=== PATIENT | male | born 1980 | race Caucasian/White ===

== ENCOUNTER 2018-09-13 12:15 | Inpatient (IN) ==
[2018-09-13 12:39] LABS: BASO# 0.03 X1000 (0.0-0.2); BASO% 0.3 % (0.0-0.8); EOS# 0.06 X1000 (0.0-0.7); EOS% 0.6 % (0.0-10.0); HEMATOCRIT 47.1 % (42.0-52.0); HEMOGLOBIN 16.2 g/dL (14.0-18.0); IMM GRAN# 0.04 X1000 (0.0-0.04); IMM GRAN% 0.4 % (0.0-0.5); LYMPH# 1.23 X1000 (1.2-3.4); LYMPH% 12.9 % (20.5-51.1); MCHC 34.4 g/dL (33-37); MCV 84.4 FL (81-99); MONO# 0.92 X1000 (0.11-0.59); MONO% 9.7 % (1.7-9.3); MPV 9.1 FL (7.4-10.4); NEUT# 7.24 X1000 (1.4-6.5); NEUT% 76.1 % (42.2-75.2); PLT 318 X1000 (130-400); RBC 5.58 XMIL (4.7-6.1); WBC 9.52 X1000 (4.8-10.8)
[2018-09-13] MEDS ORDERED: NS 1,000 ML IV ONE (12:43)
[2018-09-13] MEDS ORDERED: SODIUM CHLORIDE 0.9% INJ ONE (12:43)
[2018-09-13] MEDS ORDERED: PEPCID IV ONE (12:43)
[2018-09-13] MEDS ORDERED: G.I. COCKTAIL PO ONE (12:43)
[2018-09-13] MEDS ORDERED: DUONEB (A & A) INH ONE (12:44)
[2018-09-13] MEDS ORDERED: ZOFRAN IV ONE (12:45)
[2018-09-13 12:54] LABS: INR 0.84; PROTIME 11.9 Seconds (11.0-16.0)
[2018-09-13 12:59] LABS: AGAP 12; ALKALINE PHOSPHATASE 141 U/L (32-122); BUN 13 mg/dL (8-22); CALCIUM 9.8 mg/dL (8.8-10.2); CHLORIDE 95 mmol/L (98-107); COSMO 287; CREATININE 0.8 mg/dL (0.7-1.2); ESTIMATED GFR > 60; GLUCOSE 138 mg/dL (70-104); GOT 24 U/L (10-34); GPT 24 U/L (10-44); POTASSIUM 3.7 mmol/L (3.5-5.1); SODIUM 143 mmol/L (136-145); TCO2 37 mmol/L (25-35); TOTAL PROTEIN 8.5 g/dL (6.3-8.3)
--- NOTE | 2018-09-13 13:28 | Diag Imaging Result Doc PS360 ---
EXAM: CHEST-PORTABLE HISTORY: COUGH/COPD TECHNIQUE: Portable chest single view COMPARISON: 05/30/2013 FINDINGS: The lungs are well expanded. The heart is not enlarged. The vessels are not distended. There are no infiltrates. No effusion identified. IMPRESSION: Negative exam. Electronically signed by Chano Gutiérrez 09/13/2018 1:26 PM
[2018-09-13 13:32] LABS: BILIRUBIN URINE NEGATIVE (NEGATIVE); BLOOD URINE NEGATIVE (NEGATIVE); CLARITY CLEAR (CLEAR); COLOR YELLOW; GLUCOSE URINE NEGATIVE (NEGATIVE); KETONE URINE 1+(Small) mg/dL (NEGATIVE); LEUKOCYTES URINE NEGATIVE (NEGATIVE); NITRITE URINE NEGATIVE (NEGATIVE); PROTEIN URINE 1+(30 mg/dL) mg/dL (NEGATIVE); UROBILINOGEN URINE NORMAL
[2018-09-13 13:43] LABS: UR AMPHETAMINES QUAL NONE DETECTED (NONE DETECT); UR BARBITUATES QUAL NONE DETECTED (NONE DETECT); UR BENZODIAZEPIN QUAL NONE DETECTED (NONE DETECT); UR CANNABINOIDS QUAL PRESUMPTIVE POSITIVE (NONE DETECT); UR COCAINE QUAL NONE DETECTED (NONE DETECT); UR METHADONE QUAL NONE DETECTED (NONE DETECT); UR METHAMPHETAMINE QUAL PRESUMPTIVE POSITIVE (NONE DETECT); UR OPIATES QUAL NONE DETECTED (NONE DETECT); UR OXYCODONE QUAL NONE DETECTED (NONE DETECT); UR PCP QUAL NONE DETECTED (NONE DETECT); UR PROPOXYPHENE QUAL NONE DETECTED (NONE DETECT); UR TCA QUAL NONE DETECTED (NONE DETECT)
[2018-09-13 13:50] LABS: URINE EPITHELIAL CELLS <10 /HPF (<10); URINE SOURCE CLEAN CATCH
--- NOTE | 2018-09-13 14:14 | Diag Imaging Result Doc PS360 ---
EXAM: CT ABD/PELVIS W/IV CONT ONLY HISTORY: PAIN TECHNIQUE: CT abdomen and pelvis with intravenous contrast COMPARISON: 01/31/2015 FINDINGS: No calcified gallstones or adjacent inflammation. There is mild fatty infiltration of the liver. There is thickening to the wall of the antrum of the stomach. Normal spleen, pancreas, adrenal glands, and kidneys. No hydronephrosis. Normal aorta. No bowel obstruction. No inflammation about the cecum. The appendix is not definitely identified. Stool is found throughout the colon. The urinary bladder is only mildly distended. The prostate is not enlarged. IMPRESSION: 1.Thickening to the wall of the antrum which may be secondary to gastritis or ulcer. 2.Mildly fatty liver 3.Mild constipation This exam was performed using automated exposure control, adjustment of mA or kV according to patient size, and/or use of iterative reconstruction technique. Electronically signed by Chano Gutiérrez 09/13/2018 2:12 PM
--- NOTE | 2018-09-13 15:42 | PROVIDER DOCUMENTATION ---
This chart was entered by Sonja Marmolejo Scribe, acting as scribe for Mehrdad Nogueira DO. HPI-Abdominal Pain/GI Problem - General Chief Complaint: GI Bleed Stated Complaint: VOMITING / BLOOD Time Seen by Provider: 09/13/18 12:24 Source: patient Allergies/Adverse Reactions: Patient Allergies Allergy/AdvReac Type Severity Reaction Status Date / Time No Known Allergies Allergy Verified 01/17/18 10:01 Home Medications: Home Medication List Medication Instructions Recorded Confirmed Last Taken Type Pantoprazole [Protonix] 40 mg PO DAILY@0700 #30 tab 01/17/18 Unknown Rx Promethazine [Phenergan] 25 mg PO Q6H PRN PRN #16 tab 01/17/18 Unknown Rx Sucralfate [Carafate] 1 gm PO Q6H 14 Days oral.susp 01/17/18 Unknown Rx - History of Present Illness-ABD Nature of Presenting Problems: 38 yom presents to ED cc nausea, vomiting with blood and abdominal pain for 2 days but got worse last night. Pt states he has been taking lots of Goody Powders recently. Pt has hx of peptic ulcer disease. Abdominal Pain Onset Location: reports: generalized abdomen Severity in ED: reports: moderate Onset/Duration: reports: 2 days ago Timing: reports: still present, changing over time Activities at Onset: reports: none Exposure to sick contacts?: No Modifying Factors: improves with: nothing Associated Symptoms: reports: nausea, vomiting Last BM: this morning Dark Stools Present?: reports: none noticed Rectal Bleeding: reports: none Rectal Pain: reports: none Emesis Description: reports: coffee grounds Bruising or Bleeding Gums?: No Similar Symptoms Previously?: No Recently seen or treated by another doctor?: No Review of Systems - Adult - REVIEW OF SYSTEMS - ADULT Constitutional: reports: see HPI. denies: chills, fever, fatique Eyes: reports: no symptoms reported Ears, Nose, Mouth & Throat: reports: no symptoms reported Cardiovascular: reports: no symptoms reported Respiratory: reports: no symptoms reported Gastrointestinal: reports: see HPI, abdominal pain, nausea, vomiting Genitourinary: reports: no symptoms reported Musculoskeletal: reports: no symptoms reported Integumentary: reports: no symptoms reported Neurological: reports: no symptoms reported Psychiatric: reports: no symptoms reported Endocrine: reports: no symptoms reported Hematologic/Lymphatic: reports: no symptoms reported Allergic/Immunologic: reports: no symptoms reported All Other Systems: Reviewed and Negative Past History - Adult - PAST MEDICAL HISTORY-ADULT Review of Records: reports: Nursing Assessment Review, Medications Reviewed, Social history reviewed & non-contributory. Major Childhood Illnesses: reports: denies history Cardiovascular: reports: denies history Respiratory: reports: denies history Gastrointestinal: reports: GI bleed Obstetrical/Gynecological: reports: denies history Genitourinary: reports: denies history Musculoskeletal: reports: denies history Neurological: reports: denies history Endocrine/Immune: reports: denies history Other Conditions: reports: MRSA - PRIOR SURGERIES/PROCEDURES Surgical/Procedure History: reports: tonsillectomy - PRIOR HOSPITALIZATIONS Prior Hospitalizations: reports: none - IMMUNIZATION STATUS Childhood Immunizations: See Nurse Assessment Flu Vaccine: See Nurse Assessment - FAMILY HISTORY Family History: reviewed, not pertinent - SOCIAL HISTORY Smoking: denies Physical Exam-General - PHYSICAL EXAM-ADULT Initial Vital Signs Reviewed: Yes - CONSTITUTIONAL General Appearance: appears well, alert. negative: anxious, combative - EYES Eyes: PERRL/EOMI, pink conjunctivae. negative: photophobia - HEAD, EARS, NOSE, MOUTH & THROAT HENMT: moist mucous membranes, dental decay (scattered caries), TM obscurred by cerumen (right). negative: angioedema - RESPIRATORY Respiratory: chest non-tender, no accessory muscle use, wheezing (inspiratory and expiratory, scattered). negative: crackles, rales, rhonchi - CARDIOVASCULAR Cardiovascular: normal peripheral pulses, regular rate, rhythm, no edema, no gallop, no JVD, no murmur. negative: bradycardia, tachycardia - GASTROINTESTINAL (ABDOMEN) Abdominal Exam: soft, rebound, tenderness (RUQ, RLQ and over colon), other (bowels are hypoactive in all 4 quadrants). negative: obturator sign - LYMPHATIC Lymphatic: no adenopathy. negative: striations - MUSCULOSKELETAL Back Exam: normal inspection, CVA tenderness (left). negative: swelling Extremity: normal range of motion, normal inspection. negative: deformity - SKIN Integumentary: normal color, normal turgor, warm/dry. 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 negative: facial droop, focal weakness - PSYCHIATRIC Psych/Mental Status: normal mood/affect, normal thought content, normal thought process, oriented x 3. negative: anxious Progress - PLAN OF CARE/RESULTS Progress/Plan/Lab Results: Vital Signs - 8 hr 09/13/18 12:25 Temperature 98 F Pulse Rate 71 Respiratory Rate 18 Blood Pressure 142/82 O2 Sat by Pulse Oximetry 99 Laboratory Results - last 24 hr 09/13/18 09/13/18 09/13/18 12:30 12:30 12:30 WBC 9.52 RBC 5.58 Hgb 16.2 Hct 47.1 MCV 84.4 MCH 29.0 MCHC 34.4 RDW Std Deviation 14.0 Plt Count 318 MPV 9.1 Immature Gran % (Auto) 0.4 Neut % (Auto) 76.1 H Lymph % (Auto) 12.9 L [place] % (Auto) 9.7 H Eos % (Auto) 0.6 Baso % (Auto) 0.3 Immature Gran # (Auto) 0.04 Neut # (Auto) 7.24 H Lymph # (Auto) 1.23 [place] # (Auto) 0.92 H Eos # (Auto) 0.06 Baso # (Auto) 0.03 PT 11.9 INR 0.84 PTT (Actin FS) 26.0 Sodium 143 Potassium 3.7 Chloride 95 L Carbon Dioxide 37 H Anion Gap 12 BUN 13 Creatinine 0.8 Estimated GFR/1.73 m2 > 60 BUN/Creatinine Ratio 16 Glucose 138 H Calculated Osmolality 287 Calcium 9.8 Total Bilirubin 0.30 AST 24 ALT 24 Alkaline Phosphatase 141 H Total Protein 8.5 H Albumin 5.0 Globulin 4.0 Albumin/Globulin Ratio 1.0 Orders Category Date Time Status IV Insertion ORDERED Care 09/13/18 12:42 Completed CHEST-PORTABLE [RAD] Stat Exams 09/13/18 12:[address] ABD/PELVIS W/IV CONT ONLY [CT] Stat Exams 09/13/18 12:40 Ordered CBC WITH ELECTRONIC DIFF [HEME] Stat Lab 09/13/18 12:30 Completed CBC WITH ELECTRONIC DIFF [HEME] Stat Lab 09/13/18 12:45 Ordered COMPREHENSIVE METABOLIC PANEL [CHEM] Stat Lab 09/13/18 12:30 Completed PROTIME WITH INR [COAG] Stat Lab 09/13/18 12:30 Completed PTT [COAG] Stat Lab 09/13/18 12:30 Completed TYPE & SCREEN [BBK] Stat Lab 09/13/18 12:30 Received UA NIMS W/REFLEX CULT PL [URINALYSIS] Stat Lab 09/13/18 12:52 Ordered URINE DRUG SCREEN PL Stat Lab 09/13/18 12:52 Ordered 0.9% Sodium Chloride Inj [Ns] 1,000 ml Med 09/13/18 12:43 Active IV 999 mls/hr Albuterol 2.5MG/Ipratrop 0.5MG [Duoneb (A & A)] Med 09/13/18 12:44 Discontinued 3 ml INH NOW ONE Famotidine [Pepcid] Med 09/13/18 12:43 Discontinued 20 mg IV NOW ONE Lido/[place] Alk/Al&mg Hydrox [G.i. Cocktail] Med 09/13/18 12:43 Discontinued 30 ml PO NOW ONE Ondansetron [Zofran] Med 09/13/18 12:45 Discontinued 4 mg IV NOW ONE Sodium Chloride 0.9% Med 09/13/18 12:43 Discontinued 5 - 10 ml INJ NOW ONE Aerosol Treatments Routine Oth 09/13/18 12:44 Active Aerosol Treatments Stat Oth 09/13/18 12:44 Active GI Bleed (possible) Stat Oth 09/13/18 12:31 Ordered Result Diagrams: 09/13/18 12:30 09/13/18 12:30 - REASSESSMENT Reassessment #1 Status: improving (DISCUSSED LABS/CT-SCAN PATIENT IS WILLING TO STAY FOR OBSERVATIONS) - XRAY 1 XRAY: Bilateral XRAY Study: Chest Impression: See EMR Report (IMPRESSION: Negative exam. Electronically signed by Chano Gutiérrez 09/13/2018 1:26 PM) - CT/MRI 1 CT Study: Abdomen, Pelvis Impression: See EMR Report (IMPRESSION: 1.Thickening to the wall of the antrum which may be secondary to gastritis or ulcer. 2.Mildly fatty liver 3.Mild constipation This exam was performed using automated exposure control, adjustment of mA or kV according to patient size, and/or use of iterative reconstruction technique. Electronically signed by Chano Gutiérrez 09/13/2018 2:12 PM) - CONSULTS/PCP/HOSPITALIST Notification #1 *Consult/PCP/Hospitalist*: Dr. Pratt Time Discussed: 15:32 Consult Disposition: Admit (Dr. Pratt accepted pt) Departure - Departure Date of Disposition Decision: 09/13/18 Time of Disposition Decision: 15:41 DIAGNOSIS: Upper gastrointestinal hemorrhage due to gastritis Disposition: ADMITTED INPATIENT 09 Certified Medical Emergency: Emergent Condition: Stable Referrals and Follow-Ups: None,PCP [Primary Care Provider] - - Critical Care Note This patient required my direct & personal management of CC.: No Attestation - Physician/ JENNIFER Attestation Patient care was provided by Advanced Practice Provider:: No The physician spent face to face time with patient:: Yes Advanced Practice Provider documentation review:: Supervising physician onsite and consulted in the evaluation and care of this patient. The physician did have a face to face encounter with the patient. This chart was documented by the indicated scribe, (Sonja Marmolejo Scribe) and accurately reflects the services I performed and decisions made by me, Mehrdad Nogueira DO, as attested by the provider's signature.
[2018-09-13] MEDS: DUONEB (A & A) INH SCH ×2 (16:36→23:46)
[2018-09-13 16:54] LABS: OCCULT BLOOD 1 NEGATIVE (NEGATIVE)
[2018-09-13] MEDS ORDERED: PROTONIX 80 MG in NS 80 ML IV SCH (17:00)
--- NOTE | 2018-09-13 17:42 | HISTORY AND PHYSICAL ---
PRIMARY CARE PHYSICIAN: None. CHIEF COMPLAINT: Abdominal pain and hematemesis. HISTORY OF PRESENT ILLNESS: Mr. Klein is a 38-year-old male with a history of gastritis, gastric ulcer and GI bleed in the past, and nicotine and methamphetamine dependence, who presented to the ER with 24 hours of abdominal pain followed by hematemesis that began at midnight up until this morning. He was having generalized nausea all day yesterday. This morning at about 1 o'clock he woke up, went outside, and started having multiple bouts of hematemesis,which he describes as coffee-ground emesis. He takes around 2-4 Good powders a day and has done so for the past 4-5 months for headaches. He was actually seen around 4 years ago for the same and was scoped by Dr. Flannery, at which time he was noted to have severe gastritis, evidence of antral ulcer, and duodenitis. Today his labs show hemoconcentration. A CT of the abdomen and pelvis reveals antral thickening consistent with ulcer or gastritis. He is hemodynamically stable, and he will be admitted for further treatment and evaluation. PAST MEDICAL HISTORY: 1. Previous GI bleed in the past, status post endoscopy revealing antral ulcer and severe gastritis and duodenitis. 2. Methamphetamine dependence. 3. Nicotine dependence. PAST SURGICAL HISTORY: He has had upper endoscopy in the past, tonsillectomy, and Eustachian tubes. SOCIAL HISTORY: He smokes half a pack to a pack a day. He said he smokes methamphetamine twice a day. Smokes occasional marijuana. Denies alcohol or other illicit drug use. 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 FAMILY HISTORY: Father from a stroke. Mother possibly has lung cancer. REVIEW OF SYSTEMS: A 14-point review of systems was obtained and found to be negative with the exception of the HPI. HOME MEDICATIONS: No prescription medicines. He does take 2-4 Goody powders a day. ALLERGIES: No known drug allergies. PHYSICAL EXAMINATION: VITAL SIGNS: Blood pressure is 132/74, heart rate 105, respiratory rate 18, O2 saturation 97% on room air, temperature 98.0. GENERAL: [id number] 38-year-old male lying in the hospital bed in no acute distress. NEUROLOGIC: Awake, alert and oriented. Follows commands. No focal deficits. HEENT: Head is atraumatic and normocephalic. Pupils are equal, round and reactive to light. Oral mucosa is dry. NECK: Trachea is midline. There is no JVD. CHEST: Diminished at the bases but clear to auscultation. CV: Slightly tachycardic but regular. S1 and S2 is noted. There are no murmurs. GI: Left upper and left lower quadrant tenderness to palpation. Abdomen is soft. Bowel sounds are hypoactive. EXTREMITIES: Without edema,clubbing or cyanosis. Pulses 1+ bilaterally. DIAGNOSTIC DATA: Abdomen and pelvis CT shows thickening to the wall of the antrum which may be secondary to gastritis or ulcer. Mild fatty liver, mild constipation. Chest x-ray is negative. WBCs 9.52, hemoglobin 16.2, hematocrit 47.1, platelet count 318, INR 0.84. Sodium 143, potassium 3.7, chloride 95. CO2 is 37, anion gap 12, BUN 13, creatinine 0.8, glucose 138. AST 24, ALT 24, alkaline phosphatase 141, protein 8.5. UA shows ketones and protein. Tox screen is positive for methamphetamines and cannabinoids. ASSESSMENT/PLAN: 1. Acute upper gastrointestinal bleed, likely a recurrence of his gastric ulcer exacerbated by heavy Goody powder use as well as excessive caffeine/energy drinks. We have spoken with Dr. Flannery with Gastroenterology and will transfer him to the hospitalist service at [facility]. He is on a Protonix drip, Carafate every 6 hours, n.p.o. except ice chips, and IV fluids. He is currently hemoconcentrated. We are checking his hemoglobin and hematocrit every 6 hours. 2. Polysubstance and nicotine dependence. We have advised the patient against the use of cigarette products, marijuana, and amphetamines. Will continue cessation education and write a nicotine patch. 3. Deep venous thrombosis prophylaxis with sequential compression devices. 4. Further recommendations to follow. Dictated by MARGO Hager for Juan Harley MD cc: MARGO Hager MD [facility]
[2018-09-13 18:14] LABS: HEMATOCRIT 41.8 % (42.0-52.0); HEMOGLOBIN 14.4 g/dL (14.0-18.0)
[2018-09-13] MEDS ORDERED: NS 1,000 ML ONE (18:16)
[2018-09-13] MEDS: NS 1,000 ML IV SCH (18:29)
[2018-09-13] MEDS ORDERED: PROTONIX IV SCH (21:00)
[2018-09-13] MEDS ORDERED: PEPCID PO SCH (21:00)
--- NOTE | 2018-09-13 23:36 | HISTORY AND PHYSICAL ---
ADDENDUM: CHIEF COMPLAINT: Abdominal pain. HISTORY OF PRESENT ILLNESS: The patient presented to the hospital, stating he had some coffee- ground-appearing emesis this morning. He notes that it was similar to the previous time that he had an ulcer 5 years ago that required intervention and a blood transfusion. He has started taking Goody's powder as well as energy drinks again. PLAN: Currently his hemoglobin and hematocrit are stable. We will admit him to the hospital but transfer him to [facility] [place] for GI intervention if needed. We will place him on a Protonix drip. Keep him NPO currently. Discussed with the patient the importance of not taking Goody's powders or any anti-inflammatories as well as avoiding energy drinks, etc. Please see full note. cc: Juan Harley MD
[2018-09-13] MEDS: CARAFATE PO SCH ×2 (23:50→23:51)
[2018-09-13] MEDS: PROTONIX 80 MG in NS 80 ML IV SCH (23:51)
[2018-09-13] MEDS: NICODERM PATCH TD SCH (23:52)
[2018-09-14 00:33] LABS: HEMATOCRIT 41.6 % (42.0-52.0); HEMOGLOBIN 13.9 g/dL (14.0-18.0)
[2018-09-14] MEDS: NS 1,000 ML IV SCH ×3 (02:16→18:58)
[2018-09-14] MEDS: CARAFATE PO SCH ×4 (03:03→18:56)
[2018-09-14] MEDS: DUONEB (A & A) INH SCH ×4 (05:32→21:06)
[2018-09-14 07:15] LABS: HEMATOCRIT 42.2 % (42.0-52.0); HEMOGLOBIN 14.1 g/dL (14.0-18.0); MCH 29.3 PG (27-31); MCHC 33.4 g/dL (33-37); MCV 87.7 FL (81-99); MPV 9.5 FL (7.4-10.4); RBC 4.81 XMIL (4.7-6.1); RDW 14.3 % (11.5-14.5); WBC 9.3 X1000 (4.8-10.8)
[2018-09-14 07:48] LABS: AGAP 9; BUN 11 mg/dL (8-22); CALCIUM 8.6 mg/dL (8.8-10.2); CHLORIDE 105 mmol/L (98-107); COSMO 281; CREATININE 0.8 mg/dL (0.7-1.2); ESTIMATED GFR > 60; GLUCOSE 102 mg/dL (70-104); POTASSIUM 3.7 mmol/L (3.5-5.1); SODIUM 141 mmol/L (136-145); TCO2 27 mmol/L (25-35)
[2018-09-14] MEDS ORDERED: PROTONIX IV SCH (09:00)
[2018-09-14] MEDS ORDERED: SODIUM CHLORIDE 0.9% INJ PRN (09:00)
[2018-09-14] MEDS: PROTONIX 80 MG in NS 80 ML IV SCH ×2 (09:43→20:10)
[2018-09-14] MEDS: NICODERM PATCH TD SCH ×2 (09:44→10:07)
--- NOTE | 2018-09-14 10:36 | PROGRESS NOTE ---
DATE: 09/14/2018 SUBJECTIVE: Mr. Klein was seen early this morning. He was actually sleeping but he woke up. He was in the bed with a female partner. Mr. Klein referred to be feeling okay. Still has some intermittent abdominal discomfort. He also give a history of headache, which is intermittent and that is the reason why he has been binging every now and then on Goody Powders. Mr. Klein 4 was admitted to [facility] yesterday because of GI bleed and was transferred over here for higher level of care. OBJECTIVE: Vital signs: Blood pressure is 135/86, pulse is 69, respirations 16, temperature 97.5 degrees. General: Mr. Klein is a 38-year-old well-nourished gentleman. He was in bed, no distress. HEENT: Mucosa is pink and moist. Anicteric. Acyanotic. Neck: Supple. Chest: Clear to auscultation. No crepitations. No rhonchi. Cardiovascular: Regular rate and rhythm. There is no murmurs, no rubs, no gallops. GI: Abdomen is soft. There is minimum tenderness in the epigastrium. No rebound, guarding. Bowel sounds are present. There is no hepatosplenomegaly. Extremities: No pedal edema. Distal pulses are present. 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 There is no focal neurological deficit. LABORATORY DATA: WBC is 9.30, hemoglobin is 14.1, platelet count of 242,000. Chemistry is also reviewed is completely normal. IMAGING STUDIES: A CT scan of the abdomen and pelvis with contrast yesterday showed thickening to the wall of the antrum, which may be secondary to gastritis or ulcer. There is mildly fatty liver. There is also mild constipation. Review of previous data, the patient had an EGD on February 02, [address] Flannery which revealed severe reflux esophagitis in the distal esophagus with contact oozing. There was also evidence of erosive gastritis in the body and antrum. There was evidence of an ulcer in the gastric antrum measuring about 0.5 to 0.8, duodenitis in the duodenal bulb. ASSESSMENT: 1. Acute upper GI bleed (non variceal). This is probably related to recurrence of his gastric ulcer/severe esophagitis. The patient continues to be using Goody Powder. He has been cautioned not to. He is currently on proton pump inhibitor drip. We plan to continue this and there is a consult for gastroenterology to see the patient. Hemoglobin and hematocrit continue to be stable, so there is no need for any transfusion at this point. We will continue monitoring the hemoglobin and hematocrit. For now patient has not had any more vomiting since he came to [facility]. 2. Polysubstance and nicotine abuse patient use. Urine drug screen is positive for methamphetamine and cannabinoids. 3. Tobacco abuse patient has been counseled. 4. History of recurrent intermittent headaches, questionable for migraine. Patient has been advised to follow up with Neurology for evaluation and adequate management instead of just using Goody Powder. cc: Dank Merchant MD
--- NOTE | 2018-09-14 20:45 | GASTROENTEROLOGY CONSULTATION ---
DATE: 09/14/2018 ATTENDING PHYSICIAN: Dr. Merchant. PRIMARY CARE DOCTOR: None. REASON FOR CONSULTATION: Coffee-ground emesis. HISTORY OF PRESENT ILLNESS: Mr. Klein is a 30-year-old male who was admitted on 09/13/2018 in [facility] for new onset of coffee-ground emesis. According to the patient, this started about 1:00 yesterday in the morning. He threw up multiple times, and according to him it was coffee grounds. The patient takes about 2 to 4 Goody's Powders a day. He has been doing that for many months for chronic headaches. He has a previous history of peptic ulcer disease about 5 years ago. At that time, he was given 3 units of blood. He had an EGD at that time and showed evidence of peptic ulcer. He was told to avoid any NSAIDs at that time. According to the patient, he stayed good until 4 to 5 months ago when he started using Goody powders regularly. The patient also has a history of smoking. He smokes half a pack to 1 pack a day. On admission, his drug screen was positive for methamphetamine and marijuana. Gastroenterology was consulted for further management. PAST MEDICAL HISTORY: 1. Previous GI bleed. 2. Peptic ulcer disease. 3. Methamphetamine dependence. 4. Tobacco dependence. 5. NSAID abuse. PAST SURGICAL HISTORY: 1. EGD about 5 years ago. 2. Tonsillectomy. 3. Eustachian tube placement. SOCIAL HISTORY: He smokes half to 1 pack a day. He says he smokes methamphetamine twice a day. He smokes occasional marijuana. He denies alcohol and illicit drug abuse. 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 FAMILY HISTORY: His father from a stroke. Mother, possibly with lung cancer. REVIEW OF SYSTEMS: Denies any fevers, rigors, or chills. No chest pain, shortness of breath, dyspnea. Did have history of vomiting multiple times which were coffee grounds. Denies any blood in the stools. Denies any major arthritis. Does have history of recurrent headaches. ALLERGIES: No known drug allergies. MEDICATIONS AT HOME: Goody Powder 2 to 4 times a day. MEDICATIONS IN THE HOSPITAL: Albuterol/ipratropium, NicoDerm patch, normal saline, Protonix drip, Carafate. He is currently n.p.o. except ice chips. PHYSICAL EXAMINATION: Vital signs: Temperature 98.2 degrees, pulse of 90, respiratory rate of 16, blood pressure 130/81, saturating 100% on room air. Body weight of 160 pounds. BMI 21.7 kg. General: Patient is moderately built, moderately nourished, lying in bed in no acute distress. HEENT: No pallor. No icterus. Pupils equal, reactive to light. Neck: Supple. Abdomen: Discomfort in epigastrium. No rebound or guarding. Extremities: No cyanosis or clubbing. Neurologic: Alert, awake, oriented x3. LABORATORY DATA: Hemoglobin and hematocrit 14.1 and 42.2, white count 9.3, platelet count of 242,000. Sodium 140, potassium 3.7, chloride 105, bicarb of 27, anion gap of 9, BUN of 11, creatinine 0.8, glucose of 102, calcium is 8.6. AST 24, ALT 24, alkaline phosphatase 141, total protein is 8.5, albumin of 5. His urinalysis showing 1+ protein and 1+ ketones. Stool occult blood was negative. Toxicology screen was positive for methamphetamine and cannabinoids. IMAGING: CT of the abdomen and pelvis showed thickening to the wall of the antrum which may be secondary to gastritis or ulcer or mild fatty liver and mild constipation. IMPRESSION: Coffee-ground emesis. RECOMMENDATIONS: 1. We will continue Protonix drip and Carafate. The patient was counseled to quit smoking. The patient also counseled to quit using Goody Powders. 2. We will schedule the patient for EGD tomorrow under anesthesia. The risks, benefits, indications, and alternatives discussed with the patient. The patient acknowledged and agreed to proceed as above. 3. The patient also counseled to quit illicit drugs like methamphetamine and cannabinoids. 4. Constipation. We will start him on bowel regimen with Minda-Colace once daily. 5. Above plan of care discussed with the patient and family at bedside. All questions were answered. Please call us with any further questions. cc: MD Dank Lloyd MD
[2018-09-15] MEDS: CARAFATE PO SCH ×3 (02:30→10:39)
[2018-09-15] MEDS: PERICOLACE PO SCH ×2 (02:30→10:39)
[2018-09-15] MEDS: DUONEB (A & A) INH SCH ×3 (03:17→15:49)
[2018-09-15] MEDS: NS 1,000 ML IV SCH ×3 (03:36→15:25)
[2018-09-15] MEDS: PROTONIX 80 MG in NS 80 ML IV SCH ×3 (03:36→15:25)
[2018-09-15 06:47] LABS: HEMATOCRIT 40.6 % (42.0-52.0); HEMOGLOBIN 13.7 g/dL (14.0-18.0); MCH 29.1 PG (27-31); MCHC 33.7 g/dL (33-37); MCV 86.4 FL (81-99); MPV 9.5 FL (7.4-10.4); RBC 4.7 XMIL (4.7-6.1); RDW 13.7 % (11.5-14.5); WBC 7.46 X1000 (4.8-10.8)
[2018-09-15 07:09] LABS: AGAP 11; BUN 9 mg/dL (8-22); CALCIUM 8.3 mg/dL (8.8-10.2); CHLORIDE 104 mmol/L (98-107); COSMO 277; CREATININE 0.7 mg/dL (0.7-1.2); ESTIMATED GFR > 60; GLUCOSE 82 mg/dL (70-104); POTASSIUM 3.8 mmol/L (3.5-5.1); SODIUM 140 mmol/L (136-145); TCO2 25 mmol/L (25-35)
[2018-09-15] MEDS ORDERED: DIPRIVAN 1% ONE ×2 (10:30→12:05)
[2018-09-15] MEDS: NICODERM PATCH TD SCH (10:39)
--- NOTE | 2018-09-15 11:13 | PROGRESS NOTE ---
DATE: 09/15/2018 SUBJECTIVE: This morning Mr. Klein referred to be doing okay. Denies any vomiting blood. OBJECTIVE: Vital signs: Blood pressure 130/71, pulse is 78, respiration is 18, temperature is 98 degrees. Patient was saturating 97% on room air. General: Mr. Klein is a 38-year-old gentleman who was in bed. He had about 3 family members in the room with him. He was not in any distress. Mucosa is pink and moist. Anicteric. Acyanotic. Neck: Supple. Chest: Good air entry bilateral. There were no crepitations, no rhonchi. Cardiovascular: Regular rate and rhythm. There was no murmurs, no rubs, no gallops. GI: The abdomen was soft, minimally tender in the epigastrium. There was no rebound or guarding. Bowel sounds are present. No hepatosplenomegaly. Extremities: No pedal edema. Distal pulses are present. 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 There was no focal neurological deficit. LABORATORY DATA: Hemoglobin is 13.7, which is fairly the same as yesterday. Chemistry is also reviewed and is completely normal. ASSESSMENT AND PLAN: 1. Acute upper gastrointestinal bleed (non variceal bleed). We will presume this is related to the recurrence of a gastric ulcer versus severe esophagitis. The patient is currently on the PPI drip and is pending EGD this morning. 2. Polysubstance and nicotine abuse. Urine drug screen was positive for methamphetamine and cannabinoids. The patient has been counseled. 3. Tobacco abuse; cessation has been counseled. 4. History of recurrent intermittent headaches, questionable for migraine. Patient has been advised to follow up with a neurologist. 5. Chronic NSAID abuse (Goody Powders). The patient has been advised to cease from doing that since she since he already has a history of ulcers. Would advise to use alternative medications for any pain management. 6. Disposition will depend on the findings of the EGD this morning. The patient's hemoglobin and hematocrit remain fairly stable for the past couple days. If the EGD is unremarkable, I think we will be able to discharge him later on today. cc: Dank Merchant MD
[2018-09-15] MEDS ORDERED: XYLOCAINE-MPF 2% ONE ×2 (12:04→12:06)
--- NOTE | 2018-09-15 15:05 | OPERATIVE NOTE ---
PROCEDURE DATE: 09/15/2018 REFERRING PHYSICIAN: Dr. Garber. PREOPERATIVE DIAGNOSES: 1. Esophagogastroduodenoscopy. Diagnosis of coffee-grounds emesis for 2 days. 2. History use of Goody Powders. Taking 2-4 per day for many months. 3. History of chronic headaches taking Goody Powders. 4. History of chronic smoking. 5. Urine toxicology positive for marijuana and methamphetamine. 6. History of peptic ulcer disease five years ago. POSTOPERATIVE DIAGNOSES: 1. Esophagitis in the distal esophagus and gastroesophageal junction LA grade 3. 2. Z-line visualized 46 cm. 3. Evidence of erosive gastric body antrum. There was evidence of 2 ulcers in the gastric antrum measuring 1.5- 2 cms and 1 cms respectively. 4. Normal fundus, cardia, incisura on retroflexion. 5. Normal duodenal bulb and second portion of the duodenum. ESTIMATED BLOOD LOSS: None. COMPLICATIONS: None. ANESTHESIA: Monitored anesthesia care by anesthesiologist. SPECIMENS: None. INDICATIONS: After informed consent, the patient understood the risks, benefits, indications, alternatives, for the procedure of EGD. The risks of the procedure, including infection, bleeding, pain, trauma to the surrounding structures, perforation, , were explained to the patient, and all questions were answered. The patient acknowledged understanding agreed to proceed with the above. The patient was brought to the OR. He was turned left lateral position. A bite block was placed in patient's mouth. After adequate monitored anesthesia care, the upper scope was introduced all the way to the second portion of the esophagus that showed evidence of erythema, friability, erosions, ulcerations in the distal esophagus. The gastroesophageal junction suggesting reflux esophagitis LA grade 3. Z-line was at 46 cm. The stomach showed evidence of erythema, friability, erosions in the body and antrum suggesting erosive gastritis. Gastric antrum had 2 ulcers measuring 1.5 to 2 cm and 1 cm respectively. They were clean base with no visible vessel, no active bleeding. This is likely result from NSAID abuse. Retroflexion showed normal fundus, cardia, incisura. The duodenal bulb and second portion appeared normal. There was no evidence of active bleeding fresh or old blood in the entire EGD. The air was withdrawn. The patient tolerated the procedure well and currently monitored in the OR in stable condition. RECOMMENDATIONS: 1. The patient will continue Protonix in the hospital and put on discharge. Patient will need to be on Prilosec OTC 2 capsules p.o. b.i.d. for 3 months. The patient will need to follow up in the clinic in 4 weeks after discharge. The patient will need repeat EGD in 3 months to document ulcer healing. 2. The patient is counseled to quit smoking. The patient also counseled to quit using NSAIDs. 3. The patient was also counseled to quit drug abuse. 4. The patient will be on clear liquid diet today and advance as tolerated. 5. The patient will need to be on Carafate 1 g 6 hours for 6 weeks for now. 6. The patient will follow up in the clinic in 4 weeks after discharge. I discussed the above plan of care with the patient's family and all questions were answered. Please call us with any further questions. cc: MD Dank Lloyd MD Alexis R. Penot, MD MTDD
[2018-09-15 15:34] VITALS: BP 136/62
--- NOTE | 2018-09-15 20:03 | DISCHARGE SUMMARY ---
ADMISSION DATE: 09/13/2018 DISCHARGE DATE: 09/15/2018 PRIMARY CARE PHYSICIAN: Listed as none. ADMISSION DIAGNOSES: 1. An acute upper gastrointestinal bleed likely recurrence of a gastric ulcer, exacerbated by heavy Goody Powder use as well as excessive caffeine energy drinks. 2. Polysubstance and nicotine abuse. DISCHARGE DIAGNOSES: 1. An acute upper gastrointestinal bleed nonvariceal bleed. 2. Polysubstance and nicotine abuse. 3. Chronic nonsteroidal anti-inflammatory drug abuse. SUMMARY OF FINDINGS: This is a 38-year-old male who presents to the emergency room with 24 hours of abdominal pain followed by hematemesis that began on the midnight of arrival up until the morning when he arrived, had generalized nausea all day the day prior to arriving, woke up, went outside and started having multiple bouts of hematemesis in which he describes a coffee-grounds emesis. States he takes 2 to 4 Goody powders a day and has done so for the past 4 to 5 months for headaches. Had actually been seen approximately 4 years prior and was scoped by Dr. Falnnery and was noted at that time to have severe gastritis, evidence of an antral ulcer and duodenitis. CT of the abdomen revealed antral thickening consistent with a ulcer or gastritis. He was hemodynamically stable and was admitted to the [facility] with gastroenterology consultation. He had an EGD this morning that showed esophagitis in the distal esophagus and gastroesophageal junction LA grade 3, evidence of erosive gastric body, antrum but a normal fundus, cardia, incisura on retroflexion and a normal duodenal bulb and 2nd portion of the duodenum so it is now felt that he can safely be discharged home. DISCHARGE MEDICATIONS: Include Minda-Colace 1 p.o. b.i.d., Carafate 1 g p.o. q.6 hours, Protonix 40 mg p.o. b.i.d. FOLLOWUP: He will need to follow up with GI in 4 weeks and call their office for an appointment. All discharge instructions have been reviewed with the patient and he verbalized understanding. TIME SPENT: 33 minutes. Dictated by MARGO Vivas for Dank Merchant MD cc: MD Dank Lloyd MD I have seen and examined Mr Klein today. He is clinically stable for discharge. Vitals are stable. I have reconciled his home medications. I agree with the above discharge summary. SHANNAN
== END 2018-09-15 17:13 | disposition home or self-care (01) | DRG 379 ==
LOC: P.MEDSURG 12:15 → P.ED 12:15 → SUATTDRO 16:01 → OBSVTOIN 16:01 → 4N 17:32
PROVIDERS: ADMIT Internal Medicine; ATTEND Emergency Medicine
CPT/HCPCS: 71010; 71045; 74177; 80048; 80053; 80104; 80301; 80305; 81001; 82270; 83690; 85014; 85018; 85025; 85027; 85610; 85730; 86850; 86900; 86901; 94640; 94761; 96374; 96375; 99285; A9270; C9113; G0431; G0434; G0477; J2405; J7030; Q9967; S0028; S0164